=== PATIENT | male | born 1965 | race Two or more races ===

== ENCOUNTER 2020-10-18 07:10 | Day surgery (SDC) | payer OTHER | END 2020-10-18 11:10 | disposition home or self-care (01) | LOC: AMB-ENDOS 07:10 | PROVIDERS: ATTEND Colon & Rectal Surgery | DX: D12.3 Benign neoplasm of transverse colon (principal); K64.3 Fourth degree hemorrhoids; Z20.822 Contact with and (suspected) exposure to COVID-19; Z12.11 Encounter for screening for malignant neoplasm of colon ==

== ENCOUNTER 2024-04-18 15:35 | Emergency (ER) | payer OTHER ==
[~2024-04-18] VITALS: Ht 175.3 cm; Wt 117.9 kg
[2024-04-18 15:54] VITALS: BP 133/87; O2SAT 97
[2024-04-18] MEDS ORDERED: AVALIDE 300-121 EACH PO (15:54)
[2024-04-18 16:42] LABS: HEMOGLOBIN 15.1 g/dL (13-16.00); MEAN CELL VOLUME 90.7 fL (80.0-100.00); MEAN CORPUSCULAR HEMOGLOBIN 31.2 pg (27.00-32.0); MEAN CORPUSCULAR HGB CONC 34.4 g/dl (32.0-36.0); PLATELET COUNT 234 K/uL (150-450); RED BLOOD COUNT 4.86 M/uL (4.00-6.00); RED CELL DISTRIBUTION WIDTH 13.3 % (11.5-14.5)
[2024-04-18 17:05] LABS: CALCIUM 9.5 mg/dL (8.5-10.1); CREATININE SERUM 1.17 mg/dL (0.70-1.30); GFR 64.25; POTASSIUM 4.1 mEq/L (3.5-5.1)
== END 2024-04-18 18:12 | disposition home or self-care (01) ==
LOC: ER 15:36
PROVIDERS: Emergency Medicine
DX: K62.5 Hemorrhage of anus and rectum (principal); K64.8 Other hemorrhoids